=== PATIENT | male | born 1995 | race Caucasian/White ===

== ENCOUNTER 2017-01-08 21:08 | Emergency (ER) | payer SELFPAY ==
[~2017-01-08] VITALS: Ht 172.7 cm; Wt 61.0 kg
[~2017-01-08 21:08] MED LIST: BACTRIM,SEPT1 TABLET PO; NOHOMEMEDS
[2017-01-08 21:49] LABS: HEMATOCRIT 43.5 % (38.0-50.0); MCH 33.5 PG (29.0-34.0); MCHC 36.1 G/DL (30.0-36.0); MCV 92.9 FL (86-99); MEAN PLAT.VOLUME 10.2 uM^3 (9.0-12.4); PLATELET COUNT 204 K/uL (156-360); RBC DIS.WIDTH-CV 12.3 % (11.8-14.6); RBC DIS.WIDTH-SD 40.6 % (39-53); RED BLOOD COUNT 4.68 M/uL (4.00-5.50); WHITE BLOOD COUNT 15.7 K/uL (4.1-10.2)
[2017-01-08 21:54] LABS: ADD MIUA? YES; BILIRUBIN NEGATIVE; BLOOD SMALL; COLOR COLORLESS ((YELLOW)); GLUCOSE (STRIP) NEGATIVE; KETONES NEGATIVE; LEUKOCYTES NEGATIVE; NITRITE NEGATIVE; PROTEIN (STRIP) NEGATIVE; SPECIFIC GRAVITY 1.003 (1.000-1.030); UROBILINOGEN 0.2 MG/DL (0.2-1.0)
[2017-01-08 22:10] LABS: BACTERIA NONE SEEN /HPF; EPITHELIAL CELLS NONE SEEN /HPF; MUCUS NONE SEEN /LPF; RED BLOOD CELLS 0-5 /HPF (0-5); WHITE BLOOD CELLS 0-5 /HPF (0-5)
[2017-01-08 22:19] LABS: CHLORIDE 110 mEq/L (99-109); POTASSIUM 3.2 mEq/L (3.7-5.4); SODIUM 149 mEq/L (136-147)
[2017-01-08 22:20] LABS: AMPHETAMINE NEGATIVE (500 ng/mL); BARBITURATES NEGATIVE (200 ng/mL); BENZODIAZEPINES NEGATIVE (150 ng/mL); COCAINE NEGATIVE (150 ng/mL); INTERNAL CONTROLS VALID? YES; METHADONE NEGATIVE (200 ng/mL); METHAMPHETAMINE NEGATIVE (500 ng/mL); OPIATES (MORPHINE) PRESUMPTIVE POSITIVE (100 ng/mL); OXYCODONE PRESUMPTIVE POSITIVE (100 ng/mL); PHENCYCLIDINE NEGATIVE (25 ng/mL); PROPOXYPHENE NEGATIVE (300 ng/mL); THC CANNABINOIDS PRESUMPTIVE POSITIVE (50 ng/mL); TRICYCLIC ANTIDEPRESSANTS NEGATIVE (300 ng/mL)
[2017-01-08 22:21] LABS: ADD MEDTOX COMMENT Y
[2017-01-08 22:22] LABS: GLUCOSE 96 mg/dL (70-99)
[2017-01-08 22:23] LABS: ANION GAP 18 MEQ/L (2-14)
[2017-01-08 22:24] LABS: TOTAL BILIRUBIN 0.8 mg/dL (0.0-1.0)
[2017-01-08 22:25] LABS: ALKALINE PHOSPHATASE 44 IU/L (3-129); GFR ESTIMATE (CALCULATED) > 59 mL/min/; SERUM ETHYL ALCOHOL 278 mg/dL
[2017-01-08 22:27] LABS: UREA NITROGEN (BUN) 13 mg/dL (9-23)
[2017-01-08 23:08] LABS: OPIATES QUANTITATIVE VALUE 0 NG/ML
[2017-01-09 05:38] VITALS: BP 105/55
== END 2017-01-09 05:40 | disposition home or self-care (01) ==
LOC: EME → EDBD 21:08 → EME 01-09 05:40
PROVIDERS: Emergency Medicine
PROC: 0HQ1XZZ Repair Face Skin, External Approach (ICD-10-PCS; principal; 2017-01-08)
DX: F32.9 Major depressive disorder, single episode, unspecified (principal); F10.129 Alcohol abuse with intoxication, unspecified; Y90.8 Blood alcohol level of 240 mg/100 ml or more; F19.10 Other psychoactive substance abuse, uncomplicated; S01.81XA Laceration without foreign body of other part of head, initial encounter; W22.09XA Striking against other stationary object, initial encounter; R45.851 Suicidal ideations
CPT/HCPCS: 80053; 81003; 84999; 85027; 90837; 99281; 99285; G0480; J1630; J2060

== ENCOUNTER 2017-02-07 15:13 | Emergency (ER) | payer SELFPAY ==
[~2017-02-07] VITALS: Ht 172.7 cm; Wt 63.0 kg
[2017-02-07 16:26] LABS: HEMATOCRIT 40.8 % (38.0-50.0); MCH 33.3 PG (29.0-34.0); MCHC 34.1 G/DL (30.0-36.0); MEAN PLAT.VOLUME 10.2 uM^3 (9.0-12.4); PLATELET COUNT 158 K/uL (156-360); RBC DIS.WIDTH-CV 11.9 % (11.8-14.6); RED BLOOD COUNT 4.17 M/uL (4.00-5.50)
[2017-02-07 16:27] LABS: ADD MIUA? YES; BILIRUBIN SMALL; BLOOD NEGATIVE; COLOR AMBER ((YELLOW)); GLUCOSE (STRIP) NEGATIVE; KETONES 5; LEUKOCYTES NEGATIVE; NITRITE NEGATIVE; PROTEIN (STRIP) 100; SPECIFIC GRAVITY 1.026 (1.000-1.030)
[2017-02-07 16:35] LABS: CHLORIDE 101 mEq/L (99-109); POTASSIUM 3.6 mEq/L (3.7-5.4); SODIUM 140 mEq/L (136-147)
[2017-02-07 16:37] LABS: GLUCOSE 95 mg/dL (70-99); MCV 97.8 FL (86-99); WHITE BLOOD COUNT 8.6 K/uL (4.1-10.2)
[2017-02-07 16:38] LABS: ANION GAP 11 MEQ/L (2-14)
[2017-02-07 16:38] LABS: BACTERIA NONE SEEN /HPF; EPITHELIAL CELLS NONE SEEN /HPF; MUCUS 4+ /LPF; RED BLOOD CELLS NONE SEEN /HPF (0-5); WHITE BLOOD CELLS NONE SEEN /HPF (0-5); WHITE BLOOD CELLS CLUMP FEW /HPF (0-5)
[2017-02-07 16:39] LABS: TOTAL BILIRUBIN 0.7 mg/dL (0.0-1.0)
[2017-02-07 16:40] LABS: ALKALINE PHOSPHATASE 42 IU/L (3-129)
[2017-02-07 16:41] LABS: GFR ESTIMATE (CALCULATED) > 59 mL/min/
[2017-02-07 16:42] LABS: UREA NITROGEN (BUN) 8 mg/dL (9-23)
[2017-02-07 16:44] LABS: LIPASE 6 U/L (1.0-51.0)
[2017-02-07 16:53] VITALS: BP 107/66
== END 2017-02-07 16:57 | disposition home or self-care (01) ==
LOC: EME 15:13
PROVIDERS: Nurse Practitioner Family
DX: K64.9 Unspecified hemorrhoids (principal); K62.5 Hemorrhage of anus and rectum
CPT/HCPCS: 80053; 81003; 83690; 85027; 99281; 99285

== ENCOUNTER 2017-06-19 08:47 | Emergency (ER) | payer SELFPAY ==
[~2017-06-19] VITALS: Ht 175.3 cm; Wt 65.2 kg
[2017-06-19] MEDS ORDERED: NAPROSYN500 MG PO (10:27)
[2017-06-19 11:01] VITALS: BP 136/65
== END 2017-06-19 11:02 | disposition home or self-care (01) ==
LOC: EME 08:47
DX: S90.122A Contusion of left lesser toe(s) without damage to nail, initial encounter (principal); S90.415A Abrasion, left lesser toe(s), initial encounter; W22.03XA Walked into furniture, initial encounter
CPT/HCPCS: 73660; 99281; 99283

== ENCOUNTER 2018-04-14 19:33 | Emergency (ER) | payer BC ==
[~2018-04-14] VITALS: Ht 175.3 cm; Wt 63.5 kg
[~2018-04-14 19:33] MED LIST changes: +NAPROSYN500 MG PO
[2018-04-14 19:41] VITALS: BP 111/67
== END 2018-04-14 23:00 | disposition home or self-care (01) ==
LOC: EME 19:33
PROC: 0HQ0XZZ Repair Scalp Skin, External Approach (ICD-10-PCS; principal; 2018-04-14)
DX: S01.01XA Laceration without foreign body of scalp, initial encounter (principal); Y04.8XXA Assault by other bodily force, initial encounter; Y07.9 Unspecified perpetrator of maltreatment and neglect
CPT/HCPCS: 99281; 99282